=== PATIENT | female | born 1980 | race Caucasian/White ===

== ENCOUNTER → 2018-11-16 | Outpatient (REF) | payer BC ==
[~2018-11-16] MED LIST: AMBI5TAB; DEPA500T; IBUP800T; IRON CR; SERO1TAB; XANA0.5T
[2018-11-19 14:22] LABS: HPV HYBRID CAPTURE II Negative (Negative)
== END ==
LOC: M LAB LCGH 12:26
PROVIDERS: ATTEND Nurse Practitioner Adult Health
DX: Z12.4 Encounter for screening for malignant neoplasm of cervix (principal); B37.3 Candidiasis of vulva and vagina
CPT/HCPCS: 87624; G0123

== ENCOUNTER → 2024-08-18 | Outpatient (REF) | payer BC ==
[~2024-08-18] MED LIST changes: +ALBU8.5H INH; +B-12100010 PO; +BUPR-766 PO; +BUPR150T12; +CHOL4PW PO; +CYAN100017 IM; +DICY-61; +DOXE10CA PO; +FAMO20TA PO; +FAMO20TA5 PO; +FLON1SPR NARES; +FOLI1TAB11 PO; +IRON1TAB2 PO; +IRON65TA2 PO; +LEXA1TAB PO; +MECL-86; +METH2.5T48 PO; +METH25IN12 SC; +METO1TAB87 PO; +MULT1TAB16 PO; +POTA-136 PO; +VITA1TAB82 PO; +WELLTAB38 PO; +[UNRECOGNIZED DRUG - CODE] EX
== END ==
LOC: M SFHCWAGY 12:51
PROVIDERS: ATTEND Specialist
DX: R35.0 Frequency of micturition (principal)

== ENCOUNTER → 2024-09-20 | Outpatient (CLI) | payer BC ==
[~2024-09-20] MED LIST changes: +AUGMENTIN PO; +AZEL1SPR3; +METHACHOLINE KIT (6 VIAL.NEB PREMIX) INH ONE; +TREX5TAB
== END ==
LOC: M CARPUL 13:32
PROVIDERS: ATTEND Internal Medicine Critical Care Medicine
DX: R94.2 Abnormal results of pulmonary function studies (principal)
CPT/HCPCS: 94070; 95070; J7674

== ENCOUNTER → 2025-01-20 | Outpatient (CLI) | payer BC ==
[~2025-01-20] MED LIST changes: +HYDR2.5C54; -METHACHOLINE KIT (6 VIAL.NEB PREMIX) INH ONE; +MONT10TA97 PO
[2025-01-20 14:05] LABS: BASO # 0.1 10^3/uL (0.0-0.2); BASO % 0.5 % (0.0-1.0); EOS # 0.2 10^3/uL (0.0-0.5); EOS % 2.1 % (0.0-3.0); LYMPH # 2.5 10^3/uL (1.5-5.0); LYMPH % 22.7 % (24.0-44.0); MONO # 0.8 10^3/uL (0.0-0.8); MONO % 7.3 % (2.0-8.0); NEUTROPHILS # 7.4 10^3/uL (1.5-8.5); NEUTROPHILS % 66.6 % (36.0-66.0); PLATELET COUNT, AUTOMATED 321 10^3/uL (150-450)
[2025-01-20 14:31] LABS: IMMUNOGLOBULIN E 91.7 IU/ML (0-378); TOTAL 25(OH) VITAMIN D 34.0 NG/ML (20.0-100.0)
[2025-01-23 14:58] LABS: BERMUDA GRASS IGE 0.29 kU/L (<0.10); BIRCH IGE < 0.10 kU/L (<0.10); COMMON RAGWEED SHORT IGE 5.82 kU/L (<0.10); D001 IGE D PTERONYSSINUS < 0.10 kU/L (<0.10); D002-IGE D FARINAE < 0.10 kU/L (<0.10); E001-IGE CAT DANDER < 0.10 kU/L (<0.10); E005-IGE DOG DANDER < 0.10 kU/L (<0.10); ELM IGE < 0.10 kU/L (<0.10); I006 IGE COCKROACH < 0.10 kU/L (<0.10); IMMUNOGLOBULIN E FOR ALLERGENS 95 kU/L (<OR=114); M006 IGE ALTERNIA ALTERNATA < 0.10 kU/L (<0.10); M1-PENICILLIUM NOTATUM < 0.10 kU/L (<0.10); MOUSE URINE IGE < 0.10 kU/L (<0.10); MUGWORT IGE 0.32 kU/L (<0.10); OAK IGE < 0.10 kU/L (<0.10); ROUGH PIGWEED IGE 0.15 kU/L (<0.10); SHEEP SORREL IGE < 0.10 kU/L (<0.10); T001-IGE MAPLE BOX ELDER < 0.10 kU/L (<0.10); T006-IGE MOUNTAIN CEDAR 0.13 kU/L (<0.10); T014 COTTONWOOD IGE 0.12 kU/L (<0.10); TIMOTHY GRASS IGE 2.71 kU/L (<0.10); WALNUT TREE IGE < 0.10 kU/L (<0.10); WHITE ASH IGE 0.13 kU/L (<0.10); WHITE MULBERRY IGE < 0.10 kU/L (<0.10)
[2025-01-26 20:38] LABS: PANCREATIC ELASTASE STOOL > 800 mcg/g (>200)
[2025-01-26 21:38] LABS: ASPERGILLUS FLAVUS ABY Negative (Negative); ASPERGILLUS FUMIGATUS ABY Negative (Negative); ASPERGILLUS NIGER ABY Negative (Negative)
[2025-01-27 03:22] LABS: CALPROTECTIN STOOL 31 mcg/g (<50)
== END ==
LOC: M LAB 13:10
PROVIDERS: ATTEND Internal Medicine Critical Care Medicine
DX: J45.40 Moderate persistent asthma, uncomplicated (principal); R19.7 Diarrhea, unspecified

== ENCOUNTER → 2025-02-10 | Outpatient (CLI) | payer BC ==
[~2025-02-10] MED LIST changes: +B-650TAB2 PO; +NIAC50TA9 PO
[2025-02-10 12:29] LABS: BASO # 0.1 10^3/uL (0.0-0.2); BASO % 0.5 % (0.0-1.0); EOS # 0.3 10^3/uL (0.0-0.5); EOS % 2.9 % (0.0-3.0); LYMPH # 2.4 10^3/uL (1.5-5.0); LYMPH % 22.7 % (24.0-44.0); MONO # 0.6 10^3/uL (0.0-0.8); MONO % 5.2 % (2.0-8.0); NEUTROPHILS # 7.3 10^3/uL (1.5-8.5); NEUTROPHILS % 68.0 % (36.0-66.0); PLATELET COUNT, AUTOMATED 310 10^3/uL (150-450)
[2025-02-10 12:57] LABS: C REACTIVE PROTEIN QUANTITATIV 0.56 MG/DL (<1.0)
[2025-02-10 12:58] LABS: ALT/SGPT 40.0 U/L (7.0-40); AST/SGOT 20.0 U/L (<34); CALCIUM LEVEL 8.2 MG/DL (8.5-10.1); CARBON DIOXIDE LEVEL 27.0 MMOL/L (20-31); CHLORIDE LEVEL 107.0 MMOL/L (98-107); CREATININE FOR GFR 1.03 MG/DL (0.55-1.30); GLOMERULAR FILTRATION RATE 67.9 (>58); POTASSIUM SERUM 3.8 MMOL/L (3.5-5.1); SODIUM LEVEL 143.0 MMOL/L (136-145)
== END ==
LOC: M LAB 11:30
PROVIDERS: ATTEND Internal Medicine Rheumatology
DX: M05.79 Rheumatoid arthritis with rheumatoid factor of multiple sites without organ or systems involvement (principal); R76.89 Other specified abnormal immunological findings in serum; R89.8 Other abnormal findings in specimens from other organs, systems and tissues; H04.123 Dry eye syndrome of bilateral lacrimal glands; R31.29 Other microscopic hematuria; R20.0 Anesthesia of skin; E53.8 Deficiency of other specified B group vitamins; E87.6 Hypokalemia